=== PATIENT | male | born 1940 | race Caucasian/White ===

== ENCOUNTER 2021-07-22 10:44 | Observation (INO) | payer MEDICARE ==
[~2021-07-22] VITALS: Ht 170.2 cm; Wt 66.2 kg
[2021-07-22] VITALS (9 sets, daily range): BP systolic 108–140; BP diastolic 48–95; PULSE 52–68; TEMP 98–98.4
--- NOTE | 2021-07-22 10:56 | NUR ---
PATIENT AMBULATED WITH UNSTEADY GAIT DUE TO PARKINSON'S USING A WALKER. SON ACCOMPANIED PT. CONSENT EXPLAINED AND PATIENT SIGNED. ASSESSEMENT COMPLETED. LUNGS CTA. HEART SOUNDS S1S2 WITH MUMUR. BOWEL SOUNDS HEARD. PEDAL PULSES FELT.
[2021-07-22] MEDS ORDERED: RYTARY1 CE1 PO (11:16)
[2021-07-22] MEDS ORDERED: PARCOPA 25/101 UDTAB PO (11:17)
[2021-07-22] MEDS ORDERED: GOCOVRI137 MG PO (11:20)
[2021-07-22] MEDS ORDERED: TAMBOCOR50 MG PO (11:23)
[2021-07-22] MEDS ORDERED: LEADER CLE17 GM/Dose PO (11:24)
[2021-07-22] MEDS ORDERED: COLACE 100100 MG/CAP PO (11:24)
[2021-07-22] MEDS ORDERED: ATROPINE SULFATE S1% PO (11:27)
[2021-07-22] MEDS ORDERED: BIOTENE DRY M1000 ML MM (11:27)
[2021-07-22] MEDS ORDERED: SYSTANE 0.4%-0.1 SOL OP (11:28)
[2021-07-22] MEDS ORDERED: PROTEIN1 PDR PO (11:29)
[2021-07-22 11:36] LABS: BASO # 0.1 K/mm3 (0.0-0.2); EOS # 0.2 K/mm3 (0.0-0.7); EOS % 2.7 % (0-4.0); GRAN % 77.7 % (42.2-75.2); HEMATOCRIT 45.1 % (42.0-52.0); HEMOGLOBIN 14.9 g/dl (13.5-18.0); LYMPH # 1.1 K/mm3 (1.2-3.4); LYMPH % 11.7 % (20.0-51.0); MEAN CELL VOLUME 92 fl (80.0-100.0); MEAN CORPUSCULAR HEMOGLOBIN 30 pg (27.0-31.0); MEAN CORPUSCULAR HGB CONC 33 g/dl (33.0-37.0); MEAN PLATELET VOLUME 9.3 fl (7.4-10.4); MONO # 0.6 K/mm3 (0.1-0.6); MONO % 6.6 % (1.7-9.3); PLATELET COUNT 235 K/mm3 (130-400); RED BLOOD COUNT 4.92 M/mm3 (4.20-5.60); REDCELL DISTRIBUTION WIDTH-CV 13.7 % (11.5-14.5)
[2021-07-22] MEDS ORDERED: EUTHYROX25 MCG PO (11:37)
[2021-07-22] MEDS ORDERED: MULTIVITAMIN200 MCG PO (11:39)
[2021-07-22] MEDS ORDERED: MELATONIN5 M1 SL (11:39)
[2021-07-22] MEDS ORDERED: PROSVENT PO (11:41)
[2021-07-22] MEDS ORDERED: CLOTRIM ANTIFUNGAL1% TP (11:41)
[2021-07-22] MEDS ORDERED: HYDROCORTISONE30 G3 TP (11:42)
[2021-07-22] MEDS ORDERED: INBRIJA42 M1 IH (11:46)
[2021-07-22 12:12] LABS: CALCIUM 9.2 mg/dL (8.4-10.2); CREATININE, serum 0.87 mg/dL (0.72-1.25)
[2021-07-22 12:18] LABS: POTASSIUM 4.5 mmol/L (3.5-4.5)
--- NOTE | 2021-07-22 14:15 | NUR ---
PATIENT ARRIVED TO FLOOR, REPORT GIVEN AT BEDSIDE. PATIENT IS A&O. VSS. NO C/O PAIN OR NAUSEA. RIGHT LOWER ABD INCISION IS WELL APPROXIMATED AND CLOSED WITH GLUED CLOSURE. ABD IS FLAT AND WITH POSITIVE BOWL SOUNDS. HEAD TO TOE ASSESSMENT COMPLETE. NOTED SEVERE PARKINSON TYPE MOVEMENT. PATIENT HAS EXTENSIVE HX OF PARKINSONS, A-FIB, AND CANCER WITH METS. PATIENT HAS AN EXTENSIVE MEDICATION LIST WITH SPECIFIC TIMES HE TAKES THEM AT HOME. PATIENT BROUGHT HIS HOME MEDS AND IS REQUESTING TO TAKE HIS OWN MEDS. NOTIFIED, SEE ORDERS. PATIENT ALSO REPORTS HIS IS HERE A PATIENT DOWN IN ROOM 313 WHERE HIS SON IS VISITING. FAMILY AWARE OF HIS ARRIVAL TO FLOOR. ORIENTED TO ROOM. CALL LIGHT IN REACH. SCD'S TO BLE. NO OTHER NEEDS AT THIS TIME.
--- NOTE | 2021-07-22 16:03 | NUR ---
PHARMACY TOOK HOME MEDS TO BE LABELED
--- NOTE | 2021-07-22 17:49 | NUR ---
PATIENT AMBUATED TO BATHROOM WITH 1-2 ASSIST. PATIENT HAS SEVERE PARKINSONS AND IS UNSTEADY. PATIENT WAS ABLE TO VOID. NOW SITTING UP IN BEDSIDE CHAIR. JESSICAER TERRY ORDERED.
--- NOTE | 2021-07-22 18:45 | NUR ---
Pt is sitting in recliner eating dinner at this time. Report rcvd from CHHAYA Hardy.
--- NOTE | 2021-07-22 21:45 | NUR ---
PT LAYING IN BED, STATES THAT HE IS HAVING SOME PAIN AT THE SURGICAL SITE. UPON ASSESSMENT OF THE SITE; THE PATIENT HAS SIGNIFICANT SWELLING. THE SITE IS HARD AND PAINFUL TO TOUCH. CALLED SURGICAL CHARGE NURSE, CHHAYA SOLOMON WHO ASSESSED AND AGREED THAT THIS IS NOT "NORMAL" FOR POST INGUINAL HERNIA REPAIR. THIS RN NOTIFIED THE CEPHALOMETRIC TRACER SURGEON OF THE SWELLING AND PAIN. DR. JERRY INSTRUCTED THIS NURSE TO USE ICE, AND THIS RN ASKED IF USING A SANDBAG WOULD BE SUFFICIENT. DR. JERRY SAID "USE ICE, SANDBAG AND CHECK LABS IN THE MORNING." WILL RETURN TO CHECK ON PATIENT'S STATUS IN 1 HOUR.
--- NOTE | 2021-07-22 22:45 | NUR ---
CHECKED ON PATIENT'S STATUS AFTER PLACING ICE AND SANDBAGS, THE AREA OF SWELLING WAS LARGER. CALLED PROVIDER FIRE DISPATCHER DR. JERRY, WHO STATES HE WILL COME TO SEE THE PATIENT.
--- NOTE | 2021-07-22 23:45 | NUR ---
DR JERRY AT BEDSIDE; STATES THAT THIS APPEARS TO BE A LARGE HEMATOMA. HE CALLED AND LEFT A MESSAGE WITH DR. PACHECO WHO PERFORMED THE HERNIA REPAIR. DR. JERRY STATES THAT THIS PATIENT SHOULD BE NPO AND TO PREP HIM FOR HEMATOMA EVACUATION SURGERY IN THE MORNING. THE PROVIDER ORDERED LR@100ML/HR. THE PATIENT DENIES ANY PAIN AT THE SITE EXCEPT WHEN BEING PALPATED, AND HE TELLS US WHERE IT IS TENDER. THE TENDER SPOTS ARE THE LARGE HEMATOMA THAT IS FIRM AND BRUISING. WITH DR. JERRY AT BEDSIDE, THIS RN AND THE FOREMAN/PILE DRIVING AND ERECTION PLACED TWO 5LB SANDBAGS AND ONE 2LB SANDBAG ON TOP OF THE HEMATOMA TO HELP REDUCE IT. THE PATIENT DOES COMPLAIN OF DISCOMFORT WITH PLACEMENT. NO OTHER CONCERNS REGARDING THIS PATIENT AT THIS TIME.
[2021-07-22 23:48] LABS: HEMATOCRIT 38.9 % (42.0-52.0)
[2021-07-22 23:49] LABS: HEMOGLOBIN 12.7 g/dl (13.5-18.0)
[2021-07-22 23:55] LABS: INR 1.1 (0.8-3.0); PROTHROMBIN TIME 12.5 SECONDS (9.7-12.8)
[2021-07-23] VITALS (10 sets, daily range): BP systolic 87–158; BP diastolic 47–82; PULSE 59–73; TEMP 98.1–98.5
[2021-07-23 06:37] LABS: BASO # 0.1 K/mm3 (0.0-0.2); BASO % 0.8 % (0.0-2.0); EOS # 0.2 K/mm3 (0.0-0.7); EOS % 2.1 % (0-4.0); GRAN # 7.2 K/mm3 (1.4-6.5); GRAN % 82.7 % (42.2-75.2); HEMATOCRIT 37.5 % (42.0-52.0); HEMOGLOBIN 12.4 g/dl (13.5-18.0); LYMPH # 0.7 K/mm3 (1.2-3.4); LYMPH % 7.8 % (20.0-51.0); MEAN CELL VOLUME 92 fl (80.0-100.0); MEAN CORPUSCULAR HEMOGLOBIN 30 pg (27.0-31.0); MEAN CORPUSCULAR HGB CONC 33 g/dl (33.0-37.0); MONO # 0.5 K/mm3 (0.1-0.6); MONO % 6.1 % (1.7-9.3); PLATELET COUNT 201 K/mm3 (130-400); RED BLOOD COUNT 4.08 M/mm3 (4.20-5.60); REDCELL DISTRIBUTION WIDTH-CV 13.8 % (11.5-14.5)
--- NOTE | 2021-07-23 06:45 | NUR ---
Received report from professor of fine art. Pt was incontinent of urine, bed changed and pt given bed bath. Large bruising noted to right groin, sand bags in place per order. Pt reports pain is tolerable at this time. He is aware that he is to not have anything to eat or drink until dr comes in to see him. Call light within reach
[2021-07-23 07:03] LABS: CALCIUM 8.7 mg/dL (8.4-10.2); CREATININE, serum 0.84 mg/dL (0.72-1.25); POTASSIUM 4.6 mmol/L (3.5-4.5)
--- NOTE | 2021-07-23 10:00 | NUR ---
Dr Carvalho has been in to see patient, discussed going back to surgery later this morning/early afternoon. Ice pack placed on the hematoma site. Pts [id number] is present in the room, consent signed by her per pts request. Pt denies any needs, all questions answered
--- NOTE | 2021-07-23 10:18 | NUR ---
straightedge worker met with patient to discuss discharge planning. Patient states he plans to return home where he resides with his spouse. Patient states that spouse is having a procedure in a [facility] this date and that his son is with her and that his daughter in law will be coming to the hospital this date for his support. Patient has parkinson's and is a patient of the [facility] program and participates in [facility] physical therapy sessions three times weekly. Patient has television program director services weekly through [facility] as well. Patient and oncology social work discussed home health options upon discharge and patient is open to this service and chooses [facility], if needed. Patient's primary care provider is Dr Anthony Kothari and denies difficulty obtaining his prescriptions. Patient has a durable power of ip technology transactions attorney for health care on his medical record. Will request physical therapy to evaluate and assist with disposition. Patient is returning to surgery this date.
--- NOTE | 2021-07-23 14:25 | NUR ---
Pt off the floor for surgery at this time
--- NOTE | 2021-07-23 16:37 | NUR ---
Pt has arrived back to the floor from PACU. He is alert and oriented with no pain complaints. Gauze to his groin is CDI. Pt daughter in law is present in the room. VSS, dinner ordered
--- NOTE | 2021-07-23 20:03 | NUR ---
PT RESTING IN BED. HAVING ROLLING TREMORS FROM PARKINSONS. PT INSTRUCTED TO CALL FOR ASSIST TO BR. PT AGREED. ICE PACK TO RT LOWER ABD. CALL LIGHT IN REACH. BED ALARM SET.
[2021-07-24 00:30] VITALS: BP 118/48; PULSE 67; TEMP 98.2
[2021-07-24 04:15] VITALS: BP 122/58; PULSE 65; TEMP 97.8
[2021-07-24 06:39] LABS: HEMOGLOBIN 10.5 g/dl (13.5-18.0)
[2021-07-24 06:41] LABS: HEMATOCRIT 31.6 % (42.0-52.0)
[2021-07-24 08:09] VITALS: BP 117/50; PULSE 65; TEMP 98.4
--- NOTE | 2021-07-24 11:12 | NUR ---
Salesforce Business Analyst spoke with RNLesly to order PT. SW reviewed PT eval which advised patient was appropriate to return home upon discharge.
[2021-07-24 12:37] VITALS: BP 134/50; PULSE 67; TEMP 97.9
--- NOTE | 2021-07-24 13:15 | NUR ---
First visit from the experimental rocket sled mechanic. No needs right now.
[2021-07-24 14:20] LABS: HEMOGLOBIN 11.1 g/dl (13.5-18.0)
[2021-07-24 14:29] LABS: HEMATOCRIT 34.1 % (42.0-52.0)
--- NOTE | 2021-07-24 15:01 | NUR ---
Notified that the patient will need a toilet riser upon dc. [facility] contacted and quoted me that a toilet riser would around $66 after tax. Provided the patient and patients daughter with this information and informed them that they would just have to pick it up on their way home. Patient and his daughter are ok with this curtis and verbalize their understanding of having to pick it up.
== END 2021-07-24 16:55 | disposition home or self-care (01) ==
LOC: SURG 10:44 → SDCO 10:44 → SURG 14:15 → SDCO 07-23 09:44 → SURG 07-23 09:44
PROVIDERS: Surgery; ADMIT Surgery
DX: K40.90 Unilateral inguinal hernia, without obstruction or gangrene, not specified as recurrent (principal); M96.840 Postprocedural hematoma of a musculoskeletal structure following a musculoskeletal system procedure; G20 Parkinson's disease; K21.9 Gastro-esophageal reflux disease without esophagitis; E07.9 Disorder of thyroid, unspecified; I48.91 Unspecified atrial fibrillation; Z79.899 Other long term (current) drug therapy; Z79.890 Hormone replacement therapy; Z85.828 Personal history of other malignant neoplasm of skin; Z85.46 Personal history of malignant neoplasm of prostate
CPT/HCPCS: OP; C1781; G0378; J0690; J1885; J2405; J2704; J3010; J7120

== ENCOUNTER 2023-10-07 10:57 | Emergency (ER) | payer MEDICARE ==
[~2023-10-07] VITALS: Ht 167.6 cm; Wt 61.4 kg
[~2023-10-07 10:57] MED LIST: ATROPINE SULFATE S1% PO; BIOTENE DRY M1000 ML MM; CLOTRIM ANTIFUNGAL1% TP; COLACE 100100 MG/CAP PO; EUTHYROX25 MCG PO; GOCOVRI137 MG PO; HYDROCORTISONE30 G3 TP; INBRIJA42 M1 IH; LEADER CLE17 GM/Dose PO; MELATONIN5 M1 SL; MULTIVITAMIN200 MCG PO; PARCOPA 25/101 UDTAB PO; PROSVENT PO; PROTEIN1 PDR PO; RYTARY1 CE1 PO; SYSTANE 0.4%-0.1 SOL OP; TAMBOCOR50 MG PO
[2023-10-07 11:00] VITALS: TEMP 97.9
[2023-10-07] MEDS ORDERED: LR 1,000 ML IV ONE (11:15)
[2023-10-07 11:16] LABS: BASO # 0.1 K/mm3 (0.0-0.2); BASO % 0.6 % (0.0-2.0); EOS # 0.1 K/mm3 (0.0-0.7); EOS % 0.9 % (0.0-4.0); GRAN # 7.3 K/mm3 (1.4-6.5); GRAN % 85.4 % (42.2-75.2); HEMATOCRIT 42.9 % (42.0-52.0); HEMOGLOBIN 14.2 g/dl (13.5-18.0); LYMPH # 0.6 K/mm3 (1.2-3.4); LYMPH % 7.1 % (20.0-51.0); MEAN CELL VOLUME 91 fl (80.0-100.0); MEAN CORPUSCULAR HEMOGLOBIN 30 pg (27-31); MEAN CORPUSCULAR HGB CONC 33 g/dl (33.0-37.0); MEAN PLATELET VOLUME 9.9 fl (7.4-10.4); MONO # 0.5 K/mm3 (0.1-0.6); MONO % 5.5 % (1.7-9.3); PLATELET COUNT 284 K/mm3 (130-400); RED BLOOD COUNT 4.73 M/mm3 (4.20-5.60)
[2023-10-07 11:40] LABS: ALBUMIN 3.9 gm/dL (3.4-4.8); BILIRUBIN,TOTAL 0.7 mg/dL (0.2-1.2); CALCIUM 9.5 mg/dL (8.4-10.2); CREATININE, serum 1.38 mg/dL (0.72-1.25); POTASSIUM 4.7 mmol/L (3.5-4.5); TOTAL PROTEIN 7.4 gm/dL (6.2-8.1)
[2023-10-07 12:34] LABS: COLLECTION METHOD CLEAN CATCH
[2023-10-07 12:47] VITALS: BP 161/83; PULSE 73
[2023-10-07 12:54] LABS: URINE APPEARANCE Clear (CLEAR/HAZY); URINE COLOR Yellow (YELLOW); URINE GLUCOSE Negative (NEGATIVE); URINE KETONE TRACE (NEGATIVE); URINE PROTEIN(semi-quant) 1+ (NEGATIVE)
[2023-10-07 12:55] LABS: SQUAMOUS EPITHELIAL 0-2 /hpf (0-10); URINE BACTERIA Rare /hpf (NONE SEEN); URINE BLOOD Negative (NEGATIVE); URINE NITRATE Negative (NEGATIVE); URINE RBC 0-2 /hpf (0-2)
== END 2023-10-07 12:55 | disposition home or self-care (01) ==
LOC: COL.ER 10:57
PROVIDERS: Family Medicine
DX: I95.9 Hypotension, unspecified (principal); G20.A1 Parkinson's disease without dyskinesia, without mention of fluctuations; E86.0 Dehydration
CPT/HCPCS: J7120

== ENCOUNTER 2024-05-29 19:00 | Emergency (ER) | payer MEDICARE ==
[~2024-05-29] VITALS: Ht 162.6 cm; Wt 68.2 kg
[2024-05-29 19:02] VITALS: TEMP 97.8
[2024-05-29] MEDS ORDERED: NS 1,000 ML IV ONE (19:30)
[2024-05-29 21:15] VITALS: BP 148/78; PULSE 78
== END 2024-05-29 21:15 | disposition home or self-care (01) ==
LOC: COL.ER 19:00
DX: S00.83XA Contusion of other part of head, initial encounter (principal); S80.02XA Contusion of left knee, initial encounter; S40.012A Contusion of left shoulder, initial encounter; W01.198A Fall on same level from slipping, tripping and stumbling with subsequent striking against other object, initial encounter; Y92.009 Unspecified place in unspecified non-institutional (private) residence as the place of occurrence of the external cause
CPT/HCPCS: J7030

== ENCOUNTER → 2024-06-29 | Outpatient (REF) | payer MEDICARE ==
[2024-06-29 19:46] LABS: BASO # 0.1 K/mm3 (0.0-0.2); BASO % 0.9 % (0.0-2.0); EOS # 0.1 K/mm3 (0.0-0.7); EOS % 1.8 % (0.0-4.0); GRAN # 5.1 K/mm3 (1.4-6.5); GRAN % 77.8 % (42.2-75.2); HEMATOCRIT 37.8 % (42.0-52.0); HEMOGLOBIN 12.2 g/dl (13.5-18.0); LYMPH # 0.6 K/mm3 (1.2-3.4); LYMPH % 9.6 % (20.0-51.0); MEAN CELL VOLUME 94 fl (80.0-100.0); MEAN CORPUSCULAR HEMOGLOBIN 30 pg (27-31); MEAN CORPUSCULAR HGB CONC 32 g/dl (33.0-37.0); MEAN PLATELET VOLUME 10.9 fl (7.4-10.4); MONO # 0.6 K/mm3 (0.1-0.6); MONO % 9.3 % (1.7-9.3); PLATELET COUNT 257 K/mm3 (130-400); RED BLOOD COUNT 4.02 M/mm3 (4.20-5.60); REDCELL DISTRIBUTION WIDTH-CV 16.2 % (11.5-14.5)
[2024-06-29 20:07] LABS: ALBUMIN 3.3 g/dL (3.4-4.8); ALKALINE PHOSPHATASE 102 U/L (40-150); ANION GAP 10 mmol/L (7-16); AST,SGOT 12 U/L (5-34); BILIRUBIN,TOTAL 0.3 mg/dL (0.2-1.2); BLOOD UREA NITROGEN 36 mg/dL (8-26); CALCIUM 8.7 mg/dL (8.4-10.2); CHLORIDE 106 mEq/L (98-107); CREATININE, serum 1.01 mg/dL (0.72-1.25); GLUCOSE 59 mg/dL (70-99); POTASSIUM 4.4 mEq/L (3.5-4.5); SODIUM 141 mEq/L (136-145); TOTAL PROTEIN 5.8 g/dl (6.2-8.1)
[2024-06-29 20:09] LABS: ALANINE AMINOTRANSFERASE < 6 U/L (0-55)
[2024-06-29 20:27] LABS: THYROID STIMULATING HORMONE 1.801 uIU/mL (0.350-4.940)
[2024-06-29 20:30] LABS: VALPROIC ACID (DEPAKENE) 15.1 ug/mL (43.5-90.5)
== END ==
LOC: COL.LAB 19:31
PROVIDERS: Internal Medicine
DX: E78.5 Hyperlipidemia, unspecified (principal); G20.B2 Parkinson's disease with dyskinesia, with fluctuations; E03.9 Hypothyroidism, unspecified

== ENCOUNTER 2024-07-02 20:22 | Emergency (ER) | payer MEDICARE ==
[~2024-07-02] VITALS: Ht 170.2 cm; Wt 59.1 kg
[2024-07-02 20:23] VITALS: TEMP 97.6
[2024-07-02] MEDS ORDERED: Nystatin 100,000 Units/GM Cream 15 GM TUBE TP ONE (22:15)
[2024-07-02 23:44] VITALS: BP 118/57; PULSE 71
== END 2024-07-02 23:44 | disposition home or self-care (01) ==
LOC: COL.ER 20:22
DX: S00.93XA Contusion of unspecified part of head, initial encounter (principal); B37.2 Candidiasis of skin and nail; W18.30XA Fall on same level, unspecified, initial encounter; W22.8XXA Striking against or struck by other objects, initial encounter